=== PATIENT | female | born 1980 | race Caucasian/White ===

== ENCOUNTER 2016-11-14 00:20 | Emergency (ER) | END 2016-11-14 05:30 | disposition home or self-care (01) | DX: J98.01 Acute bronchospasm (principal) | CPT/HCPCS: 71010; 93005; 94664; Z7502; Z7610 ==

== ENCOUNTER 2017-11-18 03:13 | Emergency (ER) | END 2017-11-18 06:15 | disposition home or self-care (01) ==

== ENCOUNTER 2018-04-21 18:21 | Emergency (ER) | END 2018-04-22 00:10 | disposition home or self-care (01) ==

== ENCOUNTER 2018-12-08 04:15 | Emergency (ER) | payer OTHER ==
[~2018-12-08] VITALS: Ht 162.6 cm; Wt 57.0 kg
[~2018-12-08 04:15] MED LIST: ALBU8.5H8 INH; CETI10CA PO; GUAI120S26 PO; IBUP-1542 PO; NAPR-985 PO; PRED20TA PO; PRED50TA PO
[2018-12-08 04:19] VITALS: BP 117/78; PULSE 64; RESP 18; Ht 162.6 cm; Wt 57.0 kg
[2018-12-08] MEDS ORDERED: ACET500C5 PO (06:45)
[2018-12-08] MEDS ORDERED: CEPH-443 PO (06:45)
[2018-12-08] MEDS ORDERED: IBUP800T48 PO (06:45)
[2018-12-08] MEDS ORDERED: CEFTRIAXONE 1 GM INJ IM ONE (07:00)
[2018-12-08] MEDS: CEPHALEXIN 500 MG CAP PO ONE ×2 (07:00→07:09)
[2018-12-08] MEDS ORDERED: FLUCONAZOLE 200 MG TAB PO ONE (07:00)
[2018-12-08] MEDS ORDERED: LIDOCAINE 1% (MPF) 5 ML VIAL IM ONE (07:00)
--- NOTE | 2018-12-10 12:03 | ERD ---
ER Documentation Chief Complaint Chief Complaint painful/burning/frequent urination x 1 day HPI 38 year-old [female] coming in today with Chief Complaint: painful urination History of Present Illness: accompanied by spouse today with complaint of painful urination for 1 day. Associated symptoms include dysuria, urinary frequency, chills, hematuria. Patient reports seeing blood in urine but reports not being on menstrual, ended 7 days ago. Denies any other associated symptoms. Review of systems: All systems were reviewed and are negative except for what is indicated in the history of present illness. Past Medical History: [Negative for hypertension, diabetes or other medical problems] Social History: [Patient denies tobacco, alcohol, elicit drug use] Medications: [None] Allergies: [NKDA] Social Concerns: Denies ROS All systems reviewed and are negative except as per history of present illness. Medications Home Meds Active Scripts Ibuprofen* (Motrin*) 800 Mg Tab, 800 MG PO Q6H PRN for PAIN AND OR ELEVATED TEMP, #30 TAB Prov:RAMONE BARRIENTOS NP 12/08/18 Acetaminophen* (Tylophen*) 500 Mg Capsule, 2 CAP PO Q8H PRN for PAIN AND OR ELEVATED TEMP, #30 CAP Prov:RAMONE BARRIENTOS V OCCUPATIONAL REHABILITATION AIDE 12/08/18 Cephalexin* (Keflex*) 500 Mg Capsule, 500 MG PO QID for urine infection for 10 Days, CAP Prov:RAMONE BARRIENTOS V OCCUPATIONAL REHABILITATION AIDE 12/08/18 Naproxen* (Naprosyn*) 500 Mg Tablet, 500 MG PO BID PRN for PAIN AND/OR INFLAMMATION, #30 TAB Prov:JIN CHI PA-C 04/21/18 Ibuprofen* (Motrin*) 600 Mg Tab, 600 MG PO Q6H PRN for PAIN AND OR ELEVATED TEMP, #30 TAB Prov:BRETT MCDONALD OCCUPATIONAL REHABILITATION AIDE 11/18/17 Prednisone* (Prednisone*) 20 Mg Tab, 60 MG PO DAILY for 5 Days, TAB Prov:BRETT MCDONALD OCCUPATIONAL REHABILITATION AIDE 11/18/17 Cetirizine Hcl* (Zyrtec*) 10 Mg Capsule, 10 MG PO DAILY, #30 TAB.CHEW Prov:BRETT MCDONALD NP 11/18/17 Wigcrzoyiti-N-Qqoznkuhrk Hb* (Guaifenesin* DM Syrup) 120 Ml Syrup, 10 ML PO Q4H PRN for COUGH, #120 ML Prov:BRETT MCDONALD NP 11/18/17 Albuterol Sulfate* (Proair HFA*) 8.5 Gm Hfa.aer.ad, 2 PUFF INH Q4H PRN for WHEEZING AND SOB, #1 INHALER Prov:BRETT MCDONALD NP 11/18/17 Cetirizine Hcl* (Zyrtec*) 10 Mg Capsule, 10 MG PO DAILY, #30 TAB.CHEW Prov:BRETT MCDONALD NP 11/14/16 Prednisone* (Prednisone*) 50 Mg Tablet, 50 MG PO DAILY for 5 Days, TAB Prov:BRETT MCDONALD NP 11/14/16 Albuterol Sulfate* (Proair HFA*) 8.5 Gm Hfa.aer.ad, 2 PUFF INH Q4H PRN for WHEEZING AND SOB, #1 INHALER Prov:BRETT MCDONALD NP 11/14/16 Reported Medications [none] Unknown Strength No Conflict Check 11/14/16 Allergies Allergies: Coded Allergies: No Known Drug Allergies (Verified Allergy, Unknown, 06/25/13) PMhx/Soc Medical and Surgical Hx: pt denies Medical Hx, pt denies Surgical Hx History of Surgery: No Anesthesia Reaction: No Hx Neurological Disorder: No Hx Respiratory Disorders: No Hx Cardiac Disorders: No Hx Psychiatric Problems: No Hx Miscellaneous Medical Probl: No Hx Alcohol Use: No Hx Substance Use: No Hx Tobacco Use: No Smoking Status: Never smoker FmHx Family History: No diabetes, No coronary disease Physical Exam Vitals Vital Signs Date Temp Pulse Resp B/P (MAP) Pulse Ox O2 O2 Flow FiO2 Time Delivery Rate 12/08/18 98.6 64 18 117/78 99 04:19 (91) Physical Exam Suprapubic tenderness. Const: No acute distress Head: Atraumatic Eyes: Normal Conjunctiva ENT: Normal External Ears, Nose and Mouth. Neck: Full range of motion. No meningismus. Resp: Clear to auscultation bilaterally Cardio: Regular rate and rhythm, no murmurs Abd: Soft, non distended. Normal bowel sounds. suprapubic tenderness. Skin: No petechiae or rashes Back: No midline or flank tenderness Ext: No cyanosis, or edema Neur: Awake and alert Psych: Normal Mood and Affect Results 24 hrs Laboratory Tests Test 12/08/18 05:06 Urine Color YELLOW Urine Clarity TURBID Urine pH 5.0 Urine Specific Raymond 1.019 Urine Ketones NEGATIVE mg/dL Urine Nitrite NEGATIVE mg/dL Urine Bilirubin NEGATIVE mg/dL Urine Urobilinogen NEGATIVE mg/dL Urine Leukocyte Esterase 3+ Will/ul Urine Microscopic RBC > 182 /HPF Urine Microscopic WBC > 182 /HPF Urine Squamous Epithelial Cells FEW /HPF Urine Bacteria FEW /HPF Urine Mucus FEW /HPF Urine Yeast (Budding) FEW /HPF Urine Hemoglobin 3+ mg/dL Urine Glucose NEGATIVE mg/dL Urine Total Protein 2+ mg/dl Current Medications Medications Dose Sig/Demetrice Start Time Status Last (Trade) Ordered Route PRN Stop Time Admin Dose Reason Admin Cephalexin 500 mg ONCE ONCE 12/08/18 DC 12/08/18 (Keflex) PO 07:00 07:09 12/08/18 07:01 Fluconazole 200 mg ONCE ONCE 12/08/18 DC 12/08/18 (Diflucan) PO 07:00 07:00 12/08/18 07:01 Ceftriaxone 1 gm ONCE ONCE 12/08/18 DC 12/08/18 Sodium IM 07:00 06:58 (Rocephin) 12/08/18 07:01 Lidocaine 2.1 ml ONCE ONCE 12/08/18 DC 12/08/18 (Xylocaine IM 07:00 06:59 1% (Mpf)) 12/08/18 07:01 Procedures/MDM ED course includes a thorough examination and history. ED course includes urinalysis. Low suspicion for life-threatening medical emergency or sepsis. Otherwise healthy patient presenting with constellation of symptoms likely representing UTI with hematuria characterized by history, physical exam findings [lab findings]. UA showing turbid urine, positive hematuria, positive WBCs and RBCs, positive leukocyte esterase, positive bacteria and yeast. Patient reassessment:Patient updated on results of urinalysis and plan of care. Will give 1 dose of IV ceftriaxone and Keflex and 1 dose of fluconazole for urine yeast before discharge. will order urine culture. No respiratory distress, otherwise relatively well appearing and nontoxic. Patie nt educated on diagnoses, prescriptions [acetaminophen, ibuprofen, and Keflex], follow-up care, return precautions. Strict return precautions given for worsening condition; questions answered discharge. Disposition for discharge with followup in 2-3 days with PCP/clinic. Departure Diagnosis: Primary Impression: UTI (urinary tract infection) Condition: Stable Patient Instructions: Understanding Urinary Tract Infections (UTIs) Referrals: [facility] YOU HAVE RECEIVED A MEDICAL SCREENING EXAM AND THE RESULTS INDICATE THAT YOU DO NOT HAVE A CONDITION THAT REQUIRES URGENT TREATMENT IN THE EMERGENCY DEPARTMENT. FURTHER EVALUATION AND TREATMENT OF YOUR CONDITION CAN WAIT UNTIL YOU ARE SEEN IN YOUR DOCTORS OFFICE WITHIN THE NEXT 1-2 DAYS. IT IS YOUR RESPONSIBILITY TO MAKE AN APPOINTMENT FOR FOLOW-UP CARE. IF YOU HAVE A PRIMARY DOCTOR --you should call your primary doctor and schedule an appointment IF YOU DO NOT HAVE A PRIMARY DOCTOR YOU CAN CALL OUR PHYSICIAN REFERRAL HOTLINE AT IF YOU CAN NOT AFFORD TO SEE A PHYSICIAN YOU CAN CHOSE FROM THE FOLLOWING [facility] [address] [facility] [address] [facility] [facility] [address] [facility] [address] [facility] [address] [facility] [facility] [address] [facility]. [facility] YOU HAVE RECEIVED A MEDICAL SCREENING EXAM AND THE RESULTS INDICATE THAT YOU DO NOT HAVE A CONDITION THAT REQUIRES URGENT TREATMENT IN THE EMERGENCY DEPARTMENT. FURTHER EVALUATION AND TREATMENT OF YOUR CONDITION CAN WAIT UNTIL YOU ARE SEEN IN YOUR DOCTORS OFFICE WITHIN THE NEXT 1-2 DAYS. IT IS YOUR RESPONSIBILITY TO MA KE AN APPOINTMENT FOR FOLOW-UP CARE. IF YOU HAVE A PRIMARY DOCTOR --you should call your primary doctor and schedule and appointment IF YOU DO NOT HAVE A PRIMARY DOCTOR YOU CAN CALL OUR PHYSICIAN REFERRAL HOTLINE AT . IF YOU CAN NOT AFFORD TO SEE A PHYSICIAN YOU CAN CHOSE FROM THE FOLLOWING [facility] INSTITUTIONS: [facility] [place] [address] [place] [address] [facility] [address] [place] [address] [facility] [address] [address] Additional Instructions: Call your primary care doctor TOMORROW for an appointment during the next 2-3 days.See the doctor sooner or return here if your condition worsens before your appointment time. Return for severe abdominal pain, severe flank pain, fever uncontrolled with Aminofen and ibuprofen, nausea vomiting, inability to self hydrate. RAMONE BARRIENTOS NP Dec 10, 2018 12:03
== END 2018-12-08 07:14 | disposition home or self-care (01) ==
LOC: FTE 04:15
DX: N39.0 Urinary tract infection, site not specified (principal)
CPT/HCPCS: 81001; 87086; 96372; J0696; Z7502; Z7610